=== PATIENT | male | born 1950 | race Asian ===

== ENCOUNTER → 2023-06-13 11:45 | Outpatient (REF) | payer MEDICARE, OTHER, SELFPAY | LOC: RAD 11:45 | PROVIDERS: ATTENDING PHYSICIAN Family Medicine | DX: J10.1 Influenza due to other identified influenza virus with other respiratory manifestations (principal); R05.1 Acute cough | CPT/HCPCS: 71046 ==

== ENCOUNTER → 2024-02-15 17:59 | Outpatient (REF) | payer MEDICARE, OTHER, SELFPAY | LOC: MRI 17:59 | PROVIDERS: ATTENDING PHYSICIAN Pain Medicine Interventional Pain Medicine; FAMILY PHYSICIAN Family Medicine | DX: M54.12 Radiculopathy, cervical region (principal) | CPT/HCPCS: 72141 ==

== ENCOUNTER → 2024-03-12 14:00 | Outpatient (REF) | payer MEDICARE, OTHER, SELFPAY | LOC: RAD 14:00 | PROVIDERS: ATTENDING PHYSICIAN Family Medicine | DX: E78.2 Mixed hyperlipidemia (principal); M79.10 Myalgia, unspecified site; Z78.9 Other specified health status | CPT/HCPCS: 75571 ==

== ENCOUNTER 2025-03-03 15:13 | Emergency (ER) | payer MEDICARE, BC, SELFPAY ==
[2025-03-03 15:16] VITALS: BP 155/85
--- NOTE | 2025-03-03 15:35 | ED.GENMED ---
History of Present Illness
General
Chief Complaint: Abdominal Pain
Time Seen by Provider: 03/03/25 15:28
Nursing documentation reviewed up to this point in time: agreed with
History of Present Illness
History of Present Illness:
74-year-old male presents to the ER for further evaluation of sharp stabbing left lower quadrant abdominal pain which started all of a sudden this morning. Patient denies any prior history of similar discomforts. No recent antibiotic usage. No
recent travel. He states that the pain was associated with nausea and cold sweats. He denies fever. He did not take any medications for symptoms prior to arrival. He has had routine screening colonoscopies and denies any prior personal history
of colitis or diverticulitis. No change in bowel habits. He denies any blood in his stool. He denies any dysuria or urinary frequency. He denies any back or flank pain. He reports feeling otherwise well prior to symptom onset today.
Past History
Past History
ED Past Medical History: Hypercholesterolemia
ED Past Surgical History: Orthopedic (The patient had surgery for torn meniscus in the left knee)
Social History
Tobacco: Non-smoker
Alcohol: None
Personal:
Living: with family
Employment: Disabled
Review of Systems
Review of Systems
Allergies reviewed?: Yes
Phy Exam
Physical Exam
Physical Exam:
Patient is awake, alert, appears in no acute distress, head is NCAT, PERRL, EOMI, wearing glasses, sclera anicteric, mucous membranes moist, conjunctiva pink, heart regular rate and rhythm without murmurs or ectopy, lungs are clear to auscultation
without wheezes rales or rhonchi, no JVD, abdomen is soft, obese with tenderness on palpation left lower quadrant and left mid abdomen without guarding or rebound, extremities without edema, GCS is 15
Course
Orders/Labs/Results
Orders:
Orders
03/03/25 15:28
CT Abd/pelvis W Iv Cont Urgent
Comment:
Reason For Exam: abdominal pain
03/03/25 15:37
Basic Metabolic Panel Urgent
Complete Blood Count/With Diff Urgent
Prothrombin Time Urgent
03/03/25 17:19
Urinalysis Reflex To Culture Urgent
Date Specimen was Collected: 03/03/25
Time Specimen was Collected: 17:15
03/03/25 17:45
Dicyclomine [Bentyl] 20 mg PO NOW STA
Abnormal Lab Results
03/03/25
15:37
RBC 4.52 L 10^6/uL
(4.70-6.10)
MCH 31.4 H pg
(27.0-31.0)
Absolute Monos (auto) 0.8 H 10^3/uL
(0.1-0.6)
Monocytes % 9.9 H %
(1.7-9.3)
03/03/25 15:37
03/03/25 15:37
CBC and BMP within normal limits, no electrolyte dyscrasia, kidney function preserved
Vital Signs
Initial and Last Documented VS:
Initial Vital Signs
Temp Pulse Resp Pulse Ox
98.2 F 68 18 97
03/03/25 15:14 03/03/25 15:14 03/03/25 15:14 03/03/25 15:14
Last Documented Vital Signs
Temp Pulse Resp BP Pulse Ox
98.2 F 68 16 155/85 97
03/03/25 15:14 03/03/25 15:14 03/03/25 16:13 03/03/25 15:16 03/03/25 15:38
MDM/Problems Addressed
Differential Diagnosis Includes:
Differential diagnosis to consider but not limited to diverticulitis, renal colic, colitis, constipation, bowel obstruction along with other radiology's considered
Chronic conditions affecting care:
Chronic back pain, GERD
*Radiology
Radiology exam reviewed: radiology read reviewed (Diverticulosis, no diverticulitis. Mild bladder wall thickening)
*Pulse Oximetry
SaO2: 97
Oxygen Mode of Delivery: Room air
Patient hypoxic: no
*Critical Care Note
Total Time (30-74mins, 75-104mins- exclusive of procedures): Not Applicable
Update Note
Update Note:
I discussed with patient plan for labs and CT of the abdomen pelvis. He agrees. He is declining any need for medications for either nausea or pain at the current time. Await results for dispo.
1714: I reviewed CT results-no acute worrisome process seen with regards to bowels. Mild bladder wall thickening noted. Will obtain urinalysis to rule out UTI as etiology of symptoms.
1744: I reviewed all test results with patient. I discussed with no evidence for acute worrisome process. I discussed with him alternative etiology of symptoms related to intestinal cramping. Patient states that he has been experiencing the
symptoms intermittently over the last month but it was most intense this morning. He also states that he felt near syncopal while seated on the toilet having a bowel movement this morning. I discussed with him benign nature of vasovagal etiology,
particular given very reassuring labs. I advised patient to try Bentyl and to follow-up with his primary care physician this week for reevaluation and further care. Patient felt comfortable with plan. Will give first dose of that Bentyl prior to
discharge. Patient has no additional questions at the current time
ED Attending Note
-
Portions of this chart may have been created with voice recognition software.� Occasional wrong word or��sound alike� substitutions may have occurred due to the inherent limitations of voice recognition software.
Discharge Plan
Departure
Patient Disposition: Home (Routine Discharge)
Date of Disposition: 03/03/25
Time of Disposition: 17:45
Patient with high blood pressure during this ER visit?: Yes
Discharge Problem:
Abdominal pain
Instructions: Abdominal Pain, BLOOD PRESSURE
Prescriptions:
New
dicyclomine 20 mg tablet
20 mg PO QID PRN (Reason: abdominal pain) Qty: 20 0RF
No Action
multivitamin [Daily Roge] 1 EACH tablet
1 ea PO DAILY
fexofenadine [Elizabeth] 180 MG tablet
180 mg PO DAILY
montelukast 10 MG tablet
10 mg PO DAILY
Referrals:
Elvia Danielson MD [Family Provider, Family Practice]
Activity Restrictions/Additional Instructions:
Follow a bland diet for the next 24 hours. Advance to regular diet as tolerated. Use dicyclomine as prescribed to help with abdominal discomfort. Please follow-up with your family doctor in 2 days for reevaluation and possible GI referral.
Return to the ER for any concerns.
Interventions
Interventions:
*Risk Screen - Suicide Last Done: 03/03/25 15:13
*General Assessment Last Done: 03/03/25 15:14
*Neglect/Abuse Screening Last Done: 03/03/25 15:14
[facility] Risk Assessment Tool Last Done: 03/03/25 16:13
LY-Grzegs-Thojodmgoa Assessment Last Done: 03/03/25 15:42
Discharge Date and Time
Print Language: SERBIAN
[2025-03-03 15:41] VITALS: BMI 26.3
[2025-03-03 15:45] LABS: Hematocrit 41.0 % (39.0-52.0); Hemoglobin 14.2 g/dL (13.0-18.0); Mean Corp Hgb Conc. 34.6 g/dL (33.0-37.0); Mean Corpuscular Volume 90.7 fL (80.0-94.0); Nucleated Red Blood Cells % 0 % (-); Platelet Count 153 10^3/uL (130-400); Red Cell Dist. Width 12.8 % (11.5-14.5)
[2025-03-03 15:55] LABS: INR 0.91; PT 12.4 Sec (11.4-14.6)
[2025-03-03 16:03] LABS: Blood Urea Nitrogen 17 mg/dl (9-20); Calcium 9.4 mg/dl (8.4-10.2); Carbon Dioxide 29 mmol/L (22-30); Chloride 104 mmol/L (98-107); Estimated Creatinine Clearance 85 ml/min; Glucose 91 mg/dl (70-99); Potassium 4.0 mmol/L (3.5-5.1); Sodium 137 mmol/L (135-145); eGFR > 60.00
[2025-03-03 17:30] LABS: Urine Character Clear (Clear)
[2025-03-03] MEDS: BENTYL 20 MG PO (17:53)
== END 2025-03-03 18:24 | disposition home or self-care (01) ==
LOC: EMR 15:13
PROVIDERS: EMERGENCY PHYSICIAN Emergency Medicine; FAMILY PHYSICIAN Family Medicine
DX: R10.32 Left lower quadrant pain (principal); E78.00 Pure hypercholesterolemia, unspecified; K21.9 Gastro-esophageal reflux disease without esophagitis; M54.9 Dorsalgia, unspecified; G89.29 Other chronic pain
CPT/HCPCS: 99284; 74177; 80048; 81003; 85025; 85610; Q9967